=== PATIENT | female | born 1955 | race Caucasian/White ===

== ENCOUNTER → 2016-05-18 | Outpatient (CLI) | payer BC ==
[~2016-05-18] MED LIST: ALBUAER2 INH; ASCO10003 PO; ATOR-22 PO; B-COTAB18 PO; CARB1CAP10 PO; EFF75 PO; LORA-741 PO; MAGN400T6 PO; MONT1TAB3 PO; NAPR1TAB9 PO; OMEPRAZOLE PO; SYMBICORT INH; ZYRTEC PO
== END | disposition home or self-care (01) ==
LOC: C.LABSPEC 14:47
PROVIDERS: ATTEND Internal Medicine
DX: N39.0 Urinary tract infection, site not specified (principal)

== ENCOUNTER → 2016-08-01 | Outpatient (CLI) | payer BC ==
[~2016-08-01] MED LIST changes: +ACET-1256 PO; +ACET-24 PO; +ASPEC325 PO; +CLARITIN D PO; +DICL-201 PO; +EFFSR/75 PO; +FRRG PO; +PRLSR20 PO; +ULT50X PO; +VITATAB11 PO; +VNTHFA/IN INH
--- NOTE | 2016-08-01 17:22 | DIAGNOSTIC IMAGING REPORT ---
RIGHT KNEE 2 VIEWS CLINICAL HISTORY: Right knee pain. FINDINGS: AP and crosstable lateral views of the right knee are obtained. No prior studies are available for comparison at the time of dictation. The skeletal structures appear osteopenic. No fracture is seen. Advanced degenerative narrowing is seen in the medial compartment with associated bony sclerosis. Moderate narrowing is present in the lateral and patellofemoral compartments. There are large marginal osteophytes and patellar enthesophytes. No joint effusion is seen. The overlying soft tissues are within normal limits. IMPRESSION: Arthritic change as above. No acute bony abnormality is identified. Electronically signed by: Josh Mccann M.D. 08/01/2016 5:21 PM Dictated Date/Time: 08/01/2016 5:20 PM
== END | disposition home or self-care (01) ==
LOC: C.RAD 16:39
PROVIDERS: ATTEND Internal Medicine
DX: M25.561 Pain in right knee (principal)

== ENCOUNTER → 2017-02-08 | Outpatient (CLI) | payer BC ==
[~2017-02-08] MED LIST changes: -ACET-1256 PO; -ACET-24 PO; -ASPEC325 PO; -EFFSR/75 PO; -FRRG PO; -ULT50X PO
[2017-02-08 13:04] LABS: BASO % 0.3 %; BASO ABS # 0.02 K/uL (0-0.2); COMPLETE YES; EOS % 2.9 %; HEMATOCRIT 38.5 % (37-47); IG% 0.1 %; LYMPH % 27.6 %; LYMPH ABS # 2.12 K/uL (1.2-3.4); MEAN CELL VOLUME 90.2 fL (80-100); MEAN CORPUSCULAR HGB CONC 33.2 g/dl (32-36); NEUT % 63.1 %; PLATELET COUNT 343 K/uL (130-400); RED BLOOD COUNT 4.27 M/uL (4.2-5.4); WHITE BLOOD COUNT 7.67 K/uL (4.8-10.8)
[2017-02-08 13:38] LABS: ALT/SGPT 57 U/L (12-78); AST/SGOT 35 U/L (15-37); BLOOD UREA NITROGEN 11 mg/dl (7-18); BUN/CREATININE RATIO 14.4 (10-20); CALCIUM 8.7 mg/dl (8.5-10.1); CARBON DIOXIDE 27 mmol/L (21-32); CHLORIDE 96 mmol/L (98-107); CHOLESTEROL 246 mg/dl (0-200); CREATININE 0.79 mg/dl (0.60-1.20); GLUCOSE 93 mg/dl (70-99); POTASSIUM 3.8 mmol/L (3.5-5.1); SODIUM 133 mmol/L (136-145); TRIGLYCERIDES 79 mg/dl (0-150); VERY LOW DENSITY LIPOPROT CALC 16 mg/dl
[2017-02-08 13:41] LABS: ALKALINE PHOSPHATASE 107 U/L (45-117); HDL CHOLESTEROL 125 mg/dl
== END | disposition home or self-care (01) ==
LOC: C.LABSPEC 12:25
PROVIDERS: ATTEND Internal Medicine
DX: Z00.00 Encounter for general adult medical examination without abnormal findings (principal); R56.9 Unspecified convulsions; E78.5 Hyperlipidemia, unspecified

== ENCOUNTER → 2017-02-09 | Outpatient (CLI) | payer BC ==
--- NOTE | 2017-02-09 14:54 | MAMMOGRAPHY REPORT ---
BILATERAL DIGITAL SCREENING MAMMOGRAM TOMOSYNTHESIS WITH CAD: 02/09/2017 TECHNIQUE: Breast tomosynthesis in addition to standard 2D mammography was performed. Current study was also evaluated with a Computer Aided Detection (CAD) system. COMPARISON: Comparison is made to exams dated: 06/15/2015 mammogram, 06/18/2014 ultrasound, 06/18/2014 mammogram, 06/05/2014 mammogram, 05/30/2013 mammogram, and 02/22/2010 mammogram - [facility]. BREAST COMPOSITION: There are scattered areas of fibroglandular density in both breasts. FINDINGS: No suspicious masses, calcifications, or areas of architectural distortion are noted in ei ther breast. There has been no significant interval change compared to prior exams. IMPRESSION: ACR BI-RADS CATEGORY 1: NEGATIVE There is no mammographic evidence of malignancy. A 1 year screening mammogram is recommended. The pa tient will receive written notification of the results. Approximately 10% of breast cancers are not detected with mammography. A negative mammographic report should not delay biopsy if a clinically suggestive mass is present. Miriam Ace M.D. ah/:02/09/2017 14:31:01 [employer] Dyer: Fabiola LAINEZ(Kristin)(M), [facility] letter sent: Normal 1/2 BI-RADS Code: ACR BI-RADS Category 1: Negative
== END | disposition home or self-care (01) ==
LOC: C.MAMM 11:37
PROVIDERS: ATTEND Internal Medicine
DX: Z12.31 Encounter for screening mammogram for malignant neoplasm of breast (principal)

== ENCOUNTER 2017-03-06 05:30 | Inpatient (IN) | payer BC ==
[2017-02-09 14:16] VITALS: BMI 35.0
--- NOTE | 2017-02-09 15:11 | PAT Medication Instructions ---
Service Date Feb 09, 2017. Current Home Medication List Albuterol Hfa (Ventolin Hfa), 2 PUFFS INH Q6H PRN for PRN Ascorbic Acid (Vitamin C), 1,000 MG PO QPM Atorvastatin (Lipitor), 20 MG PO HS Carbamazepine Extended Release (Tegretol Xr), 300 MG PO Q12H Diclofenac (Voltaren), 75 MG PO BID Lorazepam (Ativan), 0.5 MG PO TID PRN for PRN Montelukast Sodium (Singulair), 10 MG PO QPM Naproxen (Aleve), 440 MG PO BID Omeprazole (Prilosec), 20 MG PO QAM Venlafaxine Hcl (Effexor), 75 MG PO QAM Vitamins W/ Lipotropics (Lipoflavonoid), 2 TAB PO QAM [Claritin D], 1 TAB PO PRN [Symbicort], 2 PUFFS INH BID PRN for PRN Medication Instructions For Your Scheduled Surgery - Hold the following medications per your surgeon's instructions: Diclofenac (Voltaren), 75 MG PO BID Naproxen (Aleve), 440 MG PO BID - Hold the following medications the morning of surgery: [Claritin D], 1 TAB PO PRN Vitamins W/ Lipotropics (Lipoflavonoid), 2 TAB PO QAM - Take the following medications the morning of surgery with a sip of water: [Symbicort], 2 PUFFS INH BID PRN for PRN (if needed) Omeprazole (Prilosec), 20 MG PO QAM Venlafaxine Hcl (Effexor), 75 MG PO QAM Albuterol Hfa (Ventolin Hfa), 2 PUFFS INH Q6H PRN for PRN (if needed, and bring with you to the hospital) Lorazepam (Ativan), 0.5 MG PO TID PRN for PRN (if needed) Carbamazepine Extended Release (Tegretol Xr), 300 MG PO Q12H - Take the following medications as scheduled the night before surgery: [Symbicort], 2 PUFFS INH BID PRN for PRN (if needed) [Claritin D], 1 TAB PO PRN (if needed) Montelukast Sodium (Singulair), 10 MG PO QPM Albuterol Hfa (Ventolin Hfa), 2 PUFFS INH Q6H PRN for PRN (if needed) Ascorbic Acid (Vitamin C), 1,000 MG PO QPM Lorazepam (Ativan), 0.5 MG PO TID PRN for PRN (if needed) Carbamazepine Extended Release (Tegretol Xr), 300 MG PO Q12H Atorvastatin (Lipitor), 20 MG PO HS If you have any questions please call us at [phone] or [phone] or [phone]
--- NOTE | 2017-02-09 16:10 | DIAGNOSTIC IMAGING REPORT ---
CHEST PREADMISSION(PA/LAT) HISTORY: Preop. COMPARISON: Chest 06/29/2015. FINDINGS: The lungs are clear. Cardiac silhouette is normal in size. No pleural effusions. No pneumothorax. IMPRESSION: No acute process. Electronically signed by: Raffi Davila M.D. 02/09/2017 4:09 PM Dictated Date/Time: 02/09/2017 4:07 PM
[2017-02-09 16:18] LABS: PROTHROMBIN TIME (PATIENT) 10.2 SECONDS (9.0-12.0)
[2017-02-09 16:25] LABS: BUN/CREATININE RATIO 17.9 (10-20); CALCIUM 8.9 mg/dl (8.5-10.1); CREATININE 0.67 mg/dl (0.60-1.20); POTASSIUM 4.7 mmol/L (3.5-5.1)
--- NOTE | 2017-03-03 18:20 | HISTORY & PHYSICAL EXAMINATION ---
DATE OF ADMISSION: 03/06/2017 CHIEF COMPLAINT: Right knee pain, discomfort and instability. HISTORY OF PRESENT ILLNESS: A 61-year-old female with a lifelong history of right knee pain and discomfort. She initially injured her knee when she was 16 doing some type of gymnastics handspring technique. She had an ACL tear and developed a bucket handle meniscus tear. She had no meniscectomy around that time. She was treated with a casting. She had a difficult recovery from this and her knee has been just chronically painful ever since. It has become more disabling. She says it feels unstable. It hurts all the time. Minimal response to conservative treatment. She would like to have her right knee replaced. PAST MEDICAL HISTORY: 1. Hypercholesterolemia. 2. Heart murmur. 3. Asthma. 4. History of epilepsy, well controlled on the medicine. 5. Obesity with BMI of 35. 6. Gastroesophageal reflux disease. 7. Low back pain/sciatica. 8. Skin cancer. 9. Arthritis. PAST SURGICAL HISTORY: Include: 1. Right open meniscectomy in 1972. 2. Hysterectomy. 3. IUD removal. 4. Right shoulder surgery. ALLERGIES: HAYFEVER AND BEE STINGS. CURRENT MEDICINES: 1. Effexor 75 mg a day. 2. Tegretol-XR 100 mg twice a day. 3. Tegretol-XR 200 mg twice a day. 4. Magnesium oxide 400 mg twice a day. 5. Maxalt p.r.n. 6. ProAir inhaler p.r.n. 7. Aleve p.r.n. 8. Omeprazole 20 mg a day. 9. Oxycodone 1 tablet every 4 hours p.r.n. 10. Lipitor 20 mg a day. 11. Symbicort inhaler 2 puffs twice a day. SOCIAL HISTORY: A 61-year-old female. She is an elementary special education teacher. Her medical doctor is Dr. Horne. She is with 6 children. Rare alcohol intake. FAMILY HISTORY: Significant for breast cancer, skin cancer, diabetes and heart disease. REVIEW OF SYSTEMS: Negative for diabetes, neurologic problems, vascular problems, bleeding disorders. No chest pain or shortness of breath. No history of DVT or PE. PHYSICAL EXAMINATION: GENERAL: Reveals a healthy, pleasant, middle-aged female, looks to be in good health. HEENT: Benign. NECK: Supple. No lymphadenopathy. LUNGS: Clear to auscultation. HEART: Regular rate and rhythm. ABDOMEN: Soft, nontender, nondistended. EXTREMITIES: Grossly neurovascularly intact except as follows: Examination of the right knee and leg reveals the patient ambulates independently. She does limp on the right side. She has a well-healed very small oblique medial incision over the medial joint line. Range of motion is 5 degrees short of full extension and 20 degrees of flexion. She has a positive Li, grade 2 pivot. Negative anterior drawer, negative posterior and no varus or valgus instability. Brynn is positive for pain. She also has limited flexion. X-RAYS: X-rays of the right knee were reviewed. It shows advanced right knee DJD. She has complete loss of medial joint space. She has tibial femoral subluxation. ASSESSMENT: A 61-year-old white female with chronic ACL tear and history of bucket handle meniscus tear in the past treated surgically with advanced knee degenerative joint disease. She has failed conservative treatment and would like to have her right knee replaced. PLAN: We will take her to the operating room and do a right total knee replacement. The risks of procedure were explained to the patient include but not limited to DVT, PE, , infection, neurological injury, vascular injury, bleeding problem, pain, limited range of motion, stiffness, failure to relieve symptoms, incomplete relief of symptoms, need for further surgery in the future, fracture, leg length inequality, nerve palsy, etc. The patient understands and desires to proceed. Informed consent was obtained. She knows her young age, she may need this redone or revised in the future. As far as discharge plans, she is hoping to be discharged home using [facility] home health program. She is going to have some of her children help with her care.
[~2017-03-06] VITALS: Ht 154.9 cm; Wt 85.2 kg
[2017-03-06] VITALS (11 sets, daily range): BP systolic 112–144; BP diastolic 70–82; PULSE 68–89; TEMP 36.5–36.9; O2SAT 95–99; Ht 154.9 cm; Wt 85.2 kg
[~2017-03-06 05:30] MED LIST changes: -ALBUAER2 INH; -B-COTAB18 PO; -MAGN400T6 PO; -OMEPRAZOLE PO; -ZYRTEC PO
[2017-03-06] MEDS ORDERED: CEFAZOLIN 2000MG IV PUSH 10 ML IV SCH (06:00)
[2017-03-06] MEDS ORDERED: FAMOTIDINE 20 MG TAB PO SCH (06:00)
[2017-03-06] MEDS ORDERED: LACTATED RINGER'S 1000ML 500 ML IV ONE (06:00)
[2017-03-06] MEDS ORDERED: BUPIVACAINE LIPOSOME 266 MG, BUPIVACAINE/EPINEPHRINE INJ 50 ML, SODIUM CHLORIDE 0.9% PF... INFIL SCH ×3 (06:00)
[2017-03-06] MEDS ORDERED: SCOPOLAMINE 1.5 MG TDSY TD SCH (06:00)
[2017-03-06] MEDS ORDERED: LACTATED RINGER'S 1000ML 1,000 ML IV SCH ×2 (06:00)
[2017-03-06] MEDS ORDERED: ACETAMINOPHEN 500 MG TAB PO SCH (06:00)
[2017-03-06] MEDS ORDERED: METOCLOPRAMIDE HCL 10 MG TAB PO SCH (06:00)
[2017-03-06] MEDS ORDERED: GABAPENTIN 300 MG CAP PO SCH (06:00)
[2017-03-06] MEDS ORDERED: TRANEXAMIC ACID INJ 1,000 MG in SYRINGE 0 ML IV SCH (06:30)
[2017-03-06] MEDS ORDERED: BUPIVACAINE 0.5 % 5 MG/1 ML PF 10ML VIAL ONE (06:40)
[2017-03-06] MEDS ORDERED: BUPIVACAINE 0.25% 30 ML VIAL ONE (06:41)
--- NOTE | 2017-03-06 06:45 | History & Physical Bridge Note ---
H&P Re-Evaluation Bridge Note: I have examined the patient, reviewed the History & Physical and in the interval since the performance of the History & Physical I have noted the following changes of clinical significance: No changes noted
[2017-03-06] MEDS ORDERED: MIDAZOLAM HCL 1 MG/ML 2ML VIAL ONE ×3 (06:50→07:31)
[2017-03-06] MEDS ORDERED: FENTANYL CITRATE INJ 50 MCG/1 ML 2 ML VIAL ONE (06:51)
[2017-03-06] MEDS ORDERED: ACET-1256 PO (06:58)
[2017-03-06] MEDS ORDERED: BUPIVACAINE/EPINEPHRINE 0.25% 1:200,000 30 ML VIAL ONE (07:11)
[2017-03-06] MEDS ORDERED: BACITRACIN 50000 UNIT VIAL ONE (07:11)
[2017-03-06] MEDS ORDERED: BUPIVACAINE LIPOSOME 1/3% 266 MG/20 ML VIAL INFIL ONE (07:11)
[2017-03-06] MEDS ORDERED: SODIUM CHLORIDE 0.9% PF 50 ML VIAL ONE (07:11)
[2017-03-06] MEDS ORDERED: EpHEDrine SULFATE INJ 50 MG/ML AMP IV PRN (07:45)
[2017-03-06] MEDS ORDERED: ONDANSETRON INJ 2 MG/ML 2 ML VIAL IV PRN ×2 (07:45→09:00)
[2017-03-06] MEDS ORDERED: ATROPINE SULFATE 0.1 MG/ML 5ML SYR IV PRN (07:45)
[2017-03-06] MEDS ORDERED: ONDANSETRON INJ 2 MG/ML 2 ML VIAL ONE (07:52)
[2017-03-06] MEDS ORDERED: PROPOFOL IV EMULSION 10 MG/ML 20 ML VIAL IV ONE ×2 (07:52→08:36)
[2017-03-06] MEDS ORDERED: DEXAMETHASONE SOD INJ 4 MG/ML VIAL ONE (07:52)
[2017-03-06] MEDS ORDERED: ALUMINUM/MAGNESIUM/SIMETH (MAALOX MAX) 30 ML UDC PO PRN (09:00)
[2017-03-06] MEDS ORDERED: NON-FORMULARY MEDICATION (Omeprazole (Prilosec) 20 MG) PO SCH (09:00)
[2017-03-06] MEDS ORDERED: ZOLPIDEM TARTRATE 5 MG TAB PO PRN (09:00)
[2017-03-06] MEDS ORDERED: MAGNESIUM HYDROXIDE SUSP 30 ML UDC PO PRN (09:00)
[2017-03-06] MEDS ORDERED: HYDROmorphone INJ 0.5 MG/0.5 ML SYR IV PRN (09:00)
[2017-03-06] MEDS ORDERED: [UNRECOGNIZED DRUG - OTHER] PO SCH (09:00)
[2017-03-06] MEDS ORDERED: BISACODYL 10 MG SUPP PR PRN (09:00)
[2017-03-06] MEDS ORDERED: ALBUTEROL HFA 8 GM INHALER INH PRN (09:00)
[2017-03-06] MEDS ORDERED: METOCLOPRAMIDE HCL INJ 5 MG/ML 2 ML VIAL IV PRN (09:00)
[2017-03-06] MEDS ORDERED: VITAMINS PO SCH (09:00)
[2017-03-06] MEDS ORDERED: LORAZEPAM 0.5 MG TAB PO PRN (09:00)
[2017-03-06] MEDS ORDERED: SILVER SULFADIAZINE 1% CR 50 GM JAR EXT PRN (09:00)
--- NOTE | 2017-03-06 09:00 | [facility] Post Operative Brief Note ---
Immediate Operative Summary Operative Date Mar 06, 2017. Pre-Operative Diagnosis Advanced right knee degenerative joint disease Post-Operative Diagnosis Advanced right knee degenerative joint disease Procedure(s) Performed Right total knee arthroplasty Surgeon Dr. Frank Ellington Drilling Field Specialist Surgeon(s) Luca Han PA-C Estimated Blood Loss 50cc Findings Right Knee DJD Fluids (cc crystalloids) 1500 cc Specimens A. Right knee bone and tissue Drains None Anesthesia Spinal Complication(s) None Disposition Recovery Room / PACU
--- NOTE | 2017-03-06 09:43 | OPERATIVE REPORT ---
DATE OF OPERATION: 03/06/2017 SURGEON: Frank Ellington MD INFORMATICS MANAGER: Luca Han PA-C PREOPERATIVE DIAGNOSIS: Right knee degenerative joint disease. POSTOPERATIVE DIAGNOSIS: Same. PROCEDURE PERFORMED: Right cemented posterior stabilized total knee arthroplasty. COMPLICATIONS: None. ESTIMATED BLOOD LOSS: 50 mL. FLUID REPLACEMENT: 1500 mL crystalloid fluid replacement. TOURNIQUET TIME: 54 minutes at 300 mmHg. ANESTHESIA: Spinal with adductor canal block. DRAINS: None. SPECIMENS: Right knee sent for pathology. OPERATIVE INDICATIONS: The patient is a 61-year-old female who has had a long history of knee problems dating back to her teenage years, when she injured her knee. She had an open meniscectomy done at that time. She had also a torn ACL. She developed persistent and progressive right knee pain, discomfort and instability. She has got a chronic ACL tear. She had got advanced degenerative arthritis and failed conservative treatment and elected to proceed with operative treatment. OPERATIVE FINDINGS: Operative findings revealed advanced right knee DJD. She had a varus deformity to her knee. She had chronic ACL tear. She had grade 4 changes of the medial femoral condyle and medial tibial plateau. She also had significant eburnation of the lateral femoral condyle due to the tibial femoral subluxation as well as some grade 3 changes of the patellofemoral joint. OPERATIVE IMPLANTS: Operative implants consisted of: 1. Biomet Vanguard size 62.5 right posterior stabilized femoral component. 2. Biomet size 67 tibial tray. 3. A 10-mm posterior stabilized polyethylene insert. 4. A 31 x 8 all poly patella. OPERATIVE PROCEDURE: The patient was taken to the operating room, identified and placed on the operating table in the supine position. All contact areas were appropriately padded. IV antibiotics were provided by the anesthesia team. A spinal anesthetic and adductor canal block had been provided in the holding area. Wade catheter was placed in sterile fashion. Right thigh tourniquet was then placed and the right lower extremity was then prepped and draped in the usual sterile fashion. The right leg was elevated and exsanguinated with Esmarch and tourniquet was placed at 300 mmHg. An anterior approach to the right knee was then performed through a longitudinal incision centered over the patella. Sharp dissection was carried out through the subcutaneous tissues down to the level of the extensor mechanism. Medial parapatellar arthrotomy incision was made. Some subperiosteal dissection was carried out medially. The fat pad was resected from beneath the patellar tendon. The lateral patellofemoral ligament was released. The patella was everted and the knee was flexed. The osteophytes were taken off the distal femur. The ACL was absent. The PCL was released from the distal femur and the tibia subluxated anteriorly. The external tibial alignment jig was then placed in the anterior face of the tibia and adjusted 14 mm medially. Proximal tibial cut was made to remove about a millimeter of bone from the most deficient aspect of the medial tibial plateau. Some osteophytes were taken off medial and posteromedially. Attention was then drawn to the femur. The distal femur was entered with a sharp drill. Intramedullary canal was suctioned. A right 5-degree valgus cutting guide was placed. Distal femoral cutting block was pinned in place. Distal femoral cut was made to take an additional 3 mm of bone off the distal femur. The femur was then sized to exactly a 62.5. The AP cutting block was pinned parallel to the epicondylar axis, to which was 3 degrees of external rotation. The anterior cut, anterior chamfer, posterior cut, and posterior chamfer cuts were made. Box cutting guide was placed and adjusted slightly lateral and the box cut was made. The knee was flexed. The remnants of the medial and lateral menisci were excised. The osteophytes were taken off the posterior aspect of the femur. A trial femoral component was placed. The tibial tray was pinned in maximum external rotation and drill and stem punch were used to create defect in proximal tibia for the tibial tray. The knee was then trialed and a 10-mm insert fit most appropriately. Attention was then drawn to the patella. The patella was cleaned of all soft tissues. Patella thickness measured 21 mm in thickness and it was cut down to 13. It was sized to a size 31 patella. Lug holes were drilled for the 31 patella. Lateral osteophyte was removed. Patella button was placed. Knee was taken through range of motion and patella tracked nicely with no thumbs test. Attention was then drawn toward placement of the permanent components. All trial components were removed. Bone plug was placed in the distal femur to limit blood loss. A double batch of Palacos G cement was mixed. A right size 62.5 posterior stabilized femoral component, size 67 tibial tray, a 10-mm posterior stabilized polyethylene insert, and a 31 x 8 all poly patella were then cemented in place. Knee was brought out into full extension until cement hardened. A final cement check was then performed. Pericapsular tissues were injected with a total of 100 mL of a combination of 20 mL of Exparel, 30 mL of normal saline, and 50 mL of 0.25% Marcaine with epinephrine. The patient did receive 1 gram of tranexamic acid. The tourniquet was then let down for a final tourniquet time of 54 minutes. Hemostasis was assured with the use of electrocautery. The wound was once again irrigated. The extensor mechanism was then closed with a combination of #1 PDS suture and #1 Vicryl suture in a [id number] fashion. Extensor mechanism was checked and found to be intact. The subcutaneous tissues were then closed with 2-0 Dexon suture in a buried interrupted fashion. Skin was closed skin loren. Leg was then cleaned and dried and a sterile dressing of Xeroform, 4 x 4, sterile cast padding and Samson bandage were applied. The patient then transferred to the recovery room in stable condition. The patient tolerated the procedure well with no complications. All needle and sponge counts were correct at the end of the operation. I attest to the content of the Intraoperative Record and any orders documented therein. Any exception s are noted below.
--- NOTE | 2017-03-06 10:28 | DIAGNOSTIC IMAGING REPORT ---
R KNEE 1 OR 2 VIEWS ROUTINE CLINICAL HISTORY: AP/LATERAL IN PACU RIGHT KNEE postoperative evaluation COMPARISON: 08/01/2016 DISCUSSION: Total right knee replacement. Good contact between metallic prosthesis and underlying bone. Surgical drains are in position. Expected soft tissue postoperative changes are present. IMPRESSION: Anatomic alignment status post total right knee arthroplasty The above report was generated using voice recognition software. It may contain grammatical, syntax or spelling errors. Electronically signed by: Mason Lee M.D. 03/06/2017 10:27 AM Dictated Date/Time: 03/06/2017 10:26 AM
--- NOTE | 2017-03-06 10:35 | Anesthesiology Progress Note ---
Anesthesia Post Op Note Date & Time Mar 06, 2017 at 10:35 Vital Signs Pain Intensity: 0 Vital Signs Past 12 Hours Date Time Temp Pulse Resp B/P (MAP) Pulse Ox O2 Delivery O2 Flow Rate FiO2 03/06/17 10:16 125/60 03/06/17 10:12 75 10 99 03/06/17 10:12 75 10 03/06/17 10:11 120/63 03/06/17 10:07 73 10 03/06/17 10:07 74 10 99 03/06/17 10:06 113/62 03/06/17 10:02 72 11 100 03/06/17 10:02 73 11 03/06/17 10:01 127/56 03/06/17 09:57 74 15 100 03/06/17 09:57 36.5 74 16 119/61 (90) 99 Nasal Cannula 2 03/06/17 09:57 74 15 03/06/17 09:56 119/61 03/06/17 09:54 73 15 100 03/06/17 09:54 73 15 03/06/17 09:51 119/62 03/06/17 09:49 72 13 03/06/17 09:49 72 13 100 03/06/17 09:46 123/61 03/06/17 09:44 73 10 99 03/06/17 09:44 73 10 03/06/17 09:41 123/55 03/06/17 09:39 72 11 100 03/06/17 09:39 72 11 03/06/17 09:38 74 11 03/06/17 09:38 74 11 100 03/06/17 09:36 134/64 03/06/17 09:33 75 8 100 03/06/17 09:33 75 8 03/06/17 09:32 77 17 100 03/06/17 09:32 77 17 03/06/17 09:31 135/63 03/06/17 09:27 78 15 03/06/17 09:27 77 15 100 03/06/17 09:26 143/67 03/06/17 09:22 82 15 100 03/06/17 09:22 81 15 03/06/17 09:21 133/62 03/06/17 09:17 72 13 100 03/06/17 09:17 72 13 03/06/17 09:16 131/55 03/06/17 09:15 72 8 03/06/17 09:15 72 8 100 03/06/17 09:11 124/59 03/06/17 09:10 71 9 100 03/06/17 09:10 71 9 03/06/17 09:05 36.0 69 12 125/57 (82) 100 Oxymask 10 03/06/17 09:05 69 14 03/06/17 09:05 69 14 125/57 100 03/06/17 06:42 36.6 89 18 134/75 98 Room Air 03/06/17 06:32 36.6 89 18 134/75 (94) 98 Room Air Notes Mental Status: alert / awake / arousable, participated in evaluation Pt Amnestic to Procedure: Yes Nausea / Vomiting: adequately controlled Pain: adequately controlled Airway Patency, RR, SpO2: stable & adequate BP & HR: stable & adequate Hydration State: stable & adequate Neuraxial Anesthesia: was administered, sensory block is resolving Anesthetic Complications: no major complications apparent
[2017-03-06] MEDS ORDERED: EFFSR/75 PO (11:05)
[2017-03-06] MEDS: D5W AND 1/2NSS + 20MEQ KCL 1,000 ML IV SCH ×2 (11:51→22:05)
[2017-03-06] MEDS: KETOROLAC TROMETHAMINE 30 MG/ML VIAL IV. SCH ×3 (12:31→23:21)
[2017-03-06] MEDS: ACETAMINOPHEN 500 MG TAB PO SCH ×2 (14:00→21:35)
[2017-03-06] MEDS ORDERED: TRANEXAMIC ACID INJ 1,000 MG in SODIUM CHLORIDE 0.9% 100ML 100 ML IV SCH (15:00)
[2017-03-06] MEDS: DiphenhydrAMINE HCL 50 MG/ML VIAL IV PRN ×2 (15:17→23:25)
[2017-03-06] MEDS: SYMBICORT~ORDER AWAITING ACTION SCH ×2 (16:00→23:22)
[2017-03-06] MEDS: CHECK SCOPOLAMINE PATCH PLACEMENT SCH ×2 (16:27→23:21)
[2017-03-06] MEDS: CEFAZOLIN IV 2,000 MG in SYRINGE 0 ML IV SCH ×2 (16:28→23:26)
[2017-03-06] MEDS: TRAMADOL HCL 50 MG TAB PO PRN ×2 (16:48→23:26)
[2017-03-06] MEDS: FERROUS GLUCONATE 324 MG TAB PO SCH (17:48)
--- NOTE | 2017-03-06 18:29 | PROGRESS NOTE ---
DATE: 03/06/2017 SUBJECTIVE: A 61-year-old white female postop from a right knee replacement. She is doing pretty well. Pain is controlled. Little soreness in this hip. No chest pain or shortness of breath. Not feeling dizzy or lightheaded. OBJECTIVE: VITAL SIGNS: Temperature is 36.7. Vital signs stable. GENERAL: Reveals a healthy, pleasant middle-aged female. She is sitting up in her bedside chair, reading. She looks comfortable. LUNGS: Clear to auscultation. HEART: Regular rate and rhythm. ABDOMEN: Soft, nontender, nondistended. EXTREMITIES: Grossly neurovascularly intact except as follows: Examination of the right leg reveals the dressing to be clean, dry and intact. She can dorsiflex and plantarflex her toes appropriately. She is neurologically intact. X-RAYS: X-rays of the right knee from recovery room were reviewed. It shows a right cemented posterior stabilized total knee arthroplasty. Components looked to be in good position. No signs of problems. ASSESSMENT: A 61-year-old white female postop from a right knee replacement, doing well. Pain is controlled. She is neurologically intact. PLAN: 1. DVT prophylaxis including thigh-high TEDs, SCDs, and aspirin twice a day. 2. PT/OT. Weightbear as tolerated. Right total knee protocol. 3. Pain control. Doing well with current pain regimen. 4. IV antibiotics x24 hours. 5. Disposition: Plan to discharge to home with some home health once adequately recovered.
[2017-03-06] MEDS: CARBAMAZEPINE 100 MG TABCR PO SCH (21:34)
[2017-03-06] MEDS: MONTELUKAST SOD 10 MG TAB PO SCH (21:34)
[2017-03-06] MEDS: ASPIRIN 325 MG ECTAB PO SCH (21:34)
[2017-03-06] MEDS: ASCORBIC ACID 500 MG TAB PO SCH (21:34)
[2017-03-06] MEDS: ATORVASTATIN 20 MG TAB PO SCH (21:34)
[2017-03-06] MEDS: DOCUSATE SODIUM 100 MG CAP PO SCH (21:35)
[2017-03-06] MEDS: SENNA 8.6 MG TAB PO SCH (21:35)
[2017-03-07 03:33] VITALS: BP 129/71; PULSE 74; TEMP 36.8; O2SAT 95
[2017-03-07] MEDS: KETOROLAC TROMETHAMINE 30 MG/ML VIAL IV. SCH ×4 (05:17→23:15)
[2017-03-07] MEDS: ACETAMINOPHEN 500 MG TAB PO SCH ×3 (05:18→21:35)
[2017-03-07] MEDS: TRAMADOL HCL 50 MG TAB PO PRN ×4 (05:18→22:50)
[2017-03-07 06:49] LABS: HEMATOCRIT 27.5 % (37-47); MEAN CELL VOLUME 90.5 fL (80-100); MEAN CORPUSCULAR HEMOGLOBIN 30.3 pg (25-34); MEAN CORPUSCULAR HGB CONC 33.5 g/dl (32-36); MEAN PLATELET VOLUME 8.7 fL (7.4-10.4); PLATELET COUNT 234 K/uL (130-400); RED BLOOD COUNT 3.04 M/uL (4.2-5.4); WHITE BLOOD COUNT 7.81 K/uL (4.8-10.8)
[2017-03-07 07:10] VITALS: BP 110/65; PULSE 70; TEMP 37; O2SAT 96
[2017-03-07 07:17] LABS: BUN/CREATININE RATIO 20.2 (10-20); CALCIUM 7.1 mg/dl (8.5-10.1); CREATININE 0.62 mg/dl (0.60-1.20); POTASSIUM 4.1 mmol/L (3.5-5.1)
[2017-03-07] MEDS: D5W AND 1/2NSS + 20MEQ KCL 1,000 ML IV SCH (07:31)
[2017-03-07] MEDS: CHECK SCOPOLAMINE PATCH PLACEMENT SCH ×3 (07:32→23:15)
[2017-03-07] MEDS: SYMBICORT~ORDER AWAITING ACTION SCH ×3 (07:32→23:15)
[2017-03-07 08:00] VITALS: BP 115/62; PULSE 68; O2SAT 97
--- NOTE | 2017-03-07 08:51 | Critical Care Progress Note ---
Critical Care Progress Note Date of Service Mar 07, 2017. Critical Care Progress Note S: Called to [facility] after patient experienced syncopal episode after sitting on the bed after urinating. Patient evaluated at bedside and alert and oriented x 3. Patient states she was just feeling lightheaded and put her head on the sink before walking back to the bed with her walker and O: General: Pale, Slow to respond, Alert and Oriented, NAD Eyes: Anicteric, Normal Conjunctiva Resp: Lungs CTAB, No wheezing, rales, or rhonchi CV: RRR, No m/r/g Abd: Soft, NT, ND Ext: Right knee TYREL wrap over surgical joint Neuro: A&O x 3, CN 2-12 grossly intact, EOMI 2+ Pulses in Radial Arteries bilaterally A/P: Vasovagal syncope - CBC/BMP Reviewed: Hyponatremia - Sodium of 127 - 1L NS Bolus, + NS 150ml/hr - Repeat BMP at 10am - Blood pressure stable - Currently NSR - Transfer care to primary team Resident Tracking Resident Involvement: Resident Care Provided Care Provided: Adult Hospital Medicine
--- NOTE | 2017-03-07 08:55 | Anesthesiology Progress Note ---
Anesthesia Post Op Note Date & Time Mar 07, 2017 at 08:52 Vital Signs Vital Signs Past 12 Hours Date Time Temp Pulse Resp B/P (MAP) Pulse Ox O2 Delivery O2 Flow Rate FiO2 03/07/17 07:10 37.0 70 16 110/65 (80) 96 Room Air 03/07/17 03:33 36.8 74 18 129/71 (90) 95 Room Air 03/06/17 23:15 98 Room Air 03/06/17 22:51 36.9 68 18 131/74 (93) 98 Room Air Notes Neuraxial Anesthesia: sensory block resolved Per nursing staff the patient had a brief syncopal episode after washing and getting dressed. Pt is now currently laying in bed and receiving a fluid bolus. Patient is alert and orient to self time and place. Has a nasal cannula and denies any shortness of breath and diziness. Skin is warm pink and dry. No obvious s/s of patient distress.
[2017-03-07] MEDS: DOCUSATE SODIUM 100 MG CAP PO SCH ×2 (09:11→21:35)
[2017-03-07] MEDS: FERROUS GLUCONATE 324 MG TAB PO SCH ×3 (09:11→17:41)
[2017-03-07] MEDS: ASPIRIN 325 MG ECTAB PO SCH ×2 (09:11→21:35)
[2017-03-07] MEDS: MULTIVITAMIN TAB PO SCH (09:11)
[2017-03-07] MEDS: PANTOprazole SOD 40 MG TAB PO SCH (09:11)
[2017-03-07] MEDS: VENLAFAXINE HCL XR 75 MG CAPXR PO SCH (09:11)
[2017-03-07] MEDS: CARBAMAZEPINE 100 MG TABCR PO SCH ×2 (09:12→21:36)
--- NOTE | 2017-03-07 09:12 | PROGRESS NOTE ---
DATE: 03/07/2017 SUBJECTIVE: A 61-year-old female postop day #1 from a right knee replacement. More pain this morning, but doing okay. Denies any chest pain or shortness of breath. Not feeling dizzy or lightheaded. OBJECTIVE: VITAL SIGNS: Temperature 37.0. Vital signs stable. GENERAL: Physical examination reveals a pleasant, middle-aged female. She is lying in bed and looks pretty comfortable. LUNGS: Clear to auscultation. HEART: Regular rate and rhythm. ABDOMEN: Soft, nontender, and nondistended. EXTREMITIES: Grossly neurovascularly intact except as follows: Examination of the right leg reveals the dressing to be clean, dry and intact. She can dorsiflex and plantarflex her foot appropriately. She is neurologically intact. LABORATORY DATA: Hemoglobin is 9.2. Hematocrit 27.5. Electrolytes reveal sodium of 127. Other electrolytes are stable. ASSESSMENT: A 61-year-old female postop day #1 from a right knee replacement, doing pretty well. Pain is reasonably well controlled. She is neurologically intact. Sodium is a little bit low. She is anemic, but without significant symptoms. PLAN: 1. DVT prophylaxis including thigh-high TEDs, SCDs, and aspirin twice a day. 2. PT/OT. Weightbear as tolerated. Right total knee protocol. 3. Pain control. Doing reasonably well with current pain regimen. 4. Anemia. She is anemic, but asymptomatic. Relatively healthy and young. We will continue iron supplementation and try and avoid blood transfusion. 5. Hyponatremia. We will stop her IV fluids and put her on some normal saline. We will recheck tomorrow. 6. Disposition: Plan to discharge to home with some home health once adequately recovered.
[2017-03-07] MEDS: NSS + 20MEQ KCL 1000ML 1,000 ML IV SCH ×2 (09:16→16:54)
[2017-03-07 11:10] VITALS: BP 109/69; PULSE 65; TEMP 36.5; O2SAT 96
[2017-03-07 15:04] VITALS: BP 142/78; PULSE 69; TEMP 37; O2SAT 94
[2017-03-07] MEDS: SENNA 8.6 MG TAB PO SCH (21:35)
[2017-03-07] MEDS: ATORVASTATIN 20 MG TAB PO SCH (21:36)
[2017-03-07] MEDS: MONTELUKAST SOD 10 MG TAB PO SCH (21:36)
[2017-03-07] MEDS: ASCORBIC ACID 500 MG TAB PO SCH (21:37)
[2017-03-07 23:01] VITALS: BP 138/76; PULSE 71; TEMP 36.6; O2SAT 96
[2017-03-08] MEDS: ACETAMINOPHEN 500 MG TAB PO SCH (06:15)
[2017-03-08] MEDS: KETOROLAC TROMETHAMINE 30 MG/ML VIAL IV. SCH (06:15)
[2017-03-08] MEDS: CHECK SCOPOLAMINE PATCH PLACEMENT SCH (07:30)
[2017-03-08] MEDS: SYMBICORT~ORDER AWAITING ACTION SCH (07:31)
[2017-03-08 07:38] LABS: HEMATOCRIT 26.5 % (37-47)
[2017-03-08 07:52] VITALS: BP 120/70; PULSE 75; TEMP 37; O2SAT 94
[2017-03-08 07:52] LABS: BUN/CREATININE RATIO 11.6 (10-20); CALCIUM 7.9 mg/dl (8.5-10.1); CREATININE 0.55 mg/dl (0.60-1.20); POTASSIUM 3.9 mmol/L (3.5-5.1)
[2017-03-08 08:02] VITALS: O2SAT 94
[2017-03-08] MEDS ORDERED: ULT50X PO (08:12)
[2017-03-08] MEDS ORDERED: FRRG PO (08:12)
[2017-03-08] MEDS ORDERED: ASPEC325 PO (08:12)
[2017-03-08] MEDS ORDERED: ACET-24 PO (08:12)
--- NOTE | 2017-03-08 08:14 | Discharge Instructions ---
Discharge Instructions Date of Service Mar 08, 2017. Admission Reason for Admission: Right Knee Degenerative Joint Disease Discharge Discharge Diagnosis / Problem: Right Knee REplacement Discharge Goals Goal(s): Decrease discomfort, Improve function, Increase independence, Improve disease control, Therapeutic intervention Activity Recommendations Activity Limitations: per Instructions/Follow-up section Weightbearing Status: Right weightbearing . Instructions / Follow-Up Instructions / Follow-Up ACTIVITY RECOMMENDATIONS: Physical Therapy: * You will go to physical therapy three times each week for four to six weeks after your surgery in order to regain your knee range of motion and to retrain your knee to work properly. * It is just as important to make sure you are getting your knee perfectly straight as it is to regain your knee bend. * Taking a pain pill an hour before therapy can help you have a more productive and comfortable therapy session. Home Exercise: * You were shown a series of exercises (heel props, heel slides, etc.) in the hospital. Do these exercises three to four times each day including the exercises you were shown in physical therapy. Walking: * Get up and walk several times each day. For the first four weeks, try not to stand or walk for more than one hour at a time. If you do stand or walk for more than one hour, you will not hurt anything, but your knee and leg will likely swell. * As you feel comfortable, you may change from the walker or crutches to a cane and then to independent walking. MEDICATIONS: New Medicine: * You will likely be taking one or more of these medications: 1. Tramadol - A quick and shorter-acting pain medication. Take one to two tablets every four to six hours to lessen your pain. 2. Iron Sulfate - Take two times each day for the month after surgery to help you replace the blood lost during surgery. 3. Aspirin - Thins your blood to lessen the chance of forming a blood clot. * The most common side effects of pain medicine and iron are nausea and constipation. If nausea or constipation is too much of a problem or if you have any questions about your new medicines or doses, call [facility] at [phone]. We will try to help you manage these issues. VERY IMPORTANT TO READ AND REVIEW" Pain: * The immediate post-operative period after knee replacement surgery is often quite painful. * You are given a prescription for pain medicine. You should take it, as directed, when you need it, especially before physical therapy and before going to bed. Pain that interferes with sleep is very common and can last several months. * You will likely need pain medicine for the first four to six weeks. It will not stop all of the pain. The pain will lessen and as you feel better, you may change to milder pain medicine such as Tylenol. * The most common side effects of pain medicine are nausea and constipation, so don't take more than you need. SPECIAL CARE INSTRUCTIONS: TEDs/Elastic Stockings: * The white elastic stockings help limit swelling and prevent blood clots from forming in your legs. The more you wear them, the more they work. * Wear them for six weeks after knee replacement surgery and four weeks after partial knee replacement. Prevention of Infection: * Take antibiotics one hour before any dental cleaning, dental work, urological procedure, gastrointestinal procedure or any invasive surgery in order to prevent your new joint from getting infected. * You may get the antibiotics from the doctor performing the procedure or you may call our office at before and we will call in a prescription to the pharmacy of your choice. Things to Watch For: * Drainage from the incision site that occurs more than one week after your surgery. * Severely increased knee/leg pain or swelling. * Increased redness at the incision site. * Fever above 102 degrees Fahrenheit. * Unusual chest pain or shortness of breath. * Unusual pain or burning with urination. Call [facility] at with any of the above problems or if you have any questions about your medicines or recovery. FOLLOW UP VISIT: Make an appointment to see your doctor for approximately two weeks after surgery for a progress check and staple removal by calling the office at . Current Hospital Diet Patient's current hospital diet: Regular Diet Discharge Diet Recommended Diet: Regular Diet Procedures Procedures Performed: Right total knee arthroplasty Pending Studies Studies pending at discharge: no Laboratory Results Lipid Panel Test 02/08/17 08:30 Range/Units Triglycerides Level 79 0-150 mg/dl Cholesterol Level 246 H 0-200 mg/dl HDL Cholesterol 125 mg/dl LDL Cholesterol Direct 108 mg/dl Cholesterol/HDL Ratio 2.0 LDL Cholesterol, Calculated mg/dl Medical Emergencies . Who to Call and When: Medical Emergencies: If at any time you feel your situation is an emergency, please call 911 immediately. . Non-Emergent Contact Non-Emergency issues call your: Surgeon . "Provider Documentation" section prepared by Frank Ellington. . VTE Core Measure Inpt VTE Proph given/why not?: Other Anticoagulation, T.E.D. Stockings, SCD's
[2017-03-08] MEDS: FERROUS GLUCONATE 324 MG TAB PO SCH ×2 (08:50→12:39)
[2017-03-08] MEDS: DOCUSATE SODIUM 100 MG CAP PO SCH (08:50)
[2017-03-08] MEDS: VENLAFAXINE HCL XR 75 MG CAPXR PO SCH (08:50)
[2017-03-08] MEDS: MULTIVITAMIN TAB PO SCH (08:51)
[2017-03-08] MEDS: ASPIRIN 325 MG ECTAB PO SCH (08:51)
[2017-03-08] MEDS: PANTOprazole SOD 40 MG TAB PO SCH (08:51)
[2017-03-08] MEDS: CARBAMAZEPINE 100 MG TABCR PO SCH (08:52)
[2017-03-08 10:23] VITALS: BP 120/70; PULSE 75; TEMP 37; O2SAT 94
--- NOTE | 2017-03-08 12:32 | PROGRESS NOTE ---
DATE: 03/08/2017 SUBJECTIVE: A 61-year-old white female postop day #2 from a right knee replacement. She is doing pretty well. She had a vasovagal episode yesterday morning, but doing well since then. She did not feel like she was completely out. No chest pain or shortness of breath. Not feeling dizzy or lightheaded. Isolated knee pain which is manageable with the medications. OBJECTIVE: VITAL SIGNS: Temperature 37.0. Vital signs stable. GENERAL: Reveals a pleasant, middle-aged female. She is sitting up in her bedside chair and looks pretty comfortable. EXTREMITIES: Examination of the right leg reveals the dressing to be clean, dry and intact. Leg is well aligned. She can dorsiflex and plantarflex her foot appropriately. She is neurologically intact. LABORATORY DATA: Hemoglobin is 9.1. Hematocrit 26.5. Sodium is improved at 137. ASSESSMENT: A 61-year-old female postop day #2 from a right knee replacement, doing well. She had this vasovagal episode yesterday but doing better. Her sodium is improved. She is anemic, but asymptomatic. PLAN: 1. DVT prophylaxis including thigh-high TEDs, SCDs, and aspirin twice a day. 2. PT/OT. Weightbear as tolerated. Right total knee protocol. 3. Pain control, doing pretty well with current pain regimen. 4. Disposition: She is planning to be discharged to home and she is going to have some home health once medically stable.
[2017-03-08] MEDS: TRAMADOL HCL 50 MG TAB PO PRN (12:42)
== END 2017-03-08 14:12 | disposition home health service (06) | DRG 470 ==
LOC: C.ACU 05:30 → C.3E 06:40 → ENRESERV 10:00
PROVIDERS: ADMIT Orthopaedic Surgery Sports Medicine; ATTEND Orthopaedic Surgery Sports Medicine
PROC: 0SRC0J9 Replacement of Right Knee Joint with Synthetic Substitute, Cemented, Open Approach (ICD-10-PCS; principal; 2017-03-06 07:15)
DX: M17.11 Unilateral primary osteoarthritis, right knee (principal); E87.1 Hypo-osmolality and hyponatremia; R55 Syncope and collapse; D64.9 Anemia, unspecified; E78.00 Pure hypercholesterolemia, unspecified; K21.9 Gastro-esophageal reflux disease without esophagitis; J45.909 Unspecified asthma, uncomplicated; G40.909 Epilepsy, unspecified, not intractable, without status epilepticus; E66.9 Obesity, unspecified; Z79.899 Other long term (current) drug therapy; Z85.828 Personal history of other malignant neoplasm of skin; Z68.35 Body mass index [BMI] 35.0-35.9, adult; Z80.3 Family history of malignant neoplasm of breast; Z83.3 Family history of diabetes mellitus; Z80.8 Family history of malignant neoplasm of other organs or systems